=== PATIENT | female | born 1975 ===

== ENCOUNTER 2017-02-02 07:30 | Inpatient (IN) | payer OTHER ==
[~2017-02-02 07:30] MED LIST: Lactated Ringers 1,000 ML IV SCH; Lidocaine 1%/Sod Bicarbonate in NS 8.4% 1 ML Syringe PRN; Sodium Chloride 0.9% 10 ML Syringe FLUSH PRN
[2017-02-02] MEDS ORDERED: ceFAZolin 1 GM Vial ONE (08:27)
[2017-02-02] MEDS ORDERED: Morphine PF 1 MG/ML Amp ONE (08:32)
[2017-02-02] MEDS ORDERED: Midazolam 1 MG/ML 2 ML SDV ONE (09:00)
[2017-02-02] MEDS ORDERED: fentaNYL 100 MCG/2 ML SDV ONE (09:00)
[2017-02-02] MEDS ORDERED: Propofol 200 MG/20 ML SDV ONE ×2 (09:00→11:32)
--- NOTE | 2017-02-02 09:08 | PCM.PREANE ---
Preanesthetic Assessment - Procedure Proposed Procedure: R) THR - Anesthesia/Transfusion/Family Hx Anesthesia History: Prior Anesthesia Without Reaction Transfusion History: No Prior Transfusion(s) - Review of Systems General: No Symptoms Pulmonary: No Symptoms Cardiovascular: No Symptoms Gastrointestinal: No Symptoms Neurological: No Symptoms Other: Reports: None - Physical Assessment NPO Status Date: 02/01/17 NPO Status Time: 19:30 Pulse: 76 O2 Sat by Pulse Oximetry: 97 Respiratory Rate: 16 Blood Pressure: 116/81 Temperature: 36.8 C Height: 1.7 m Weight: 84 kg ASA Class: 2 Mental Status: Alert & Oriented x3 Airway Class: Mallampati = 1 Dentition: Reports: Normal Dentition (3) Thyro-Mental Finger Breadths: 3 Mouth Opening Finger Breadths: 3 ROM/Head Extension: Full Lungs: Clear to Auscultation, Normal Respiratory Effort Cardiovascular: Regular Rate, Regular Rhythm - Lab Values: Laboratory Last Values MRSA (PCR) Negative 01/23/17 12:24 - Allergies Allergies/Adverse Reactions: Allergies Allergy/AdvReac Type Severity Reaction Status Date / Time No Known Allergies Allergy Verified 02/02/17 08:49 - Blood Blood Available: No Product(s) Available: None - Anesthesia Plan Pre-Op Medication Ordered: None - Acknowledgements Anesthesia Type Planned: Spinal Pt an Appropriate Candidate for the Planned Anesthesia: Yes Alternatives and Risks of Anesthesia Discussed w Pt/Guardian: Yes Pt/Guardian Understands and Agrees with Anesthesia Plan: Yes PreAnesthesia Questionnaire Other OB/BYN History: ovarian cysts, Musculoskeletal History: Reports: Osteoarthritis Other Musculoskeletal History: right hip osteoarthritis, trochanteric bursitis - Past Surgical History Other Musculoskeletal Surgeries/Procedures:: left thumb reconstruction - SUBSTANCE USE Smoking Status *Q: Never Smoker Tobacco Use Within Last Twelve Months: No Recreational Drug Use History: No - HOME MEDS Home Medications: Home Meds Ibuprofen 200 mg PO Q6HR PRN 01/30/17 [History] Norethindrone [Ortho Micronor] 0.35 mg PO DAILY 01/30/17 [History] Vit A/C/E AC/Znox/Cupric Oxide [Eye Vitamin-Minerals Tablet] 1 tab PO DAILY [History] - CURRENT (IN HOUSE) MEDS Current Meds: Current Medications Aspirin (Ecotrin) 325 mg PO BID [facility] Bisacodyl (Dulcolax) 5 mg PO DAILY PRN PRN Reason: Constipation Morphine Sulfate 8 mg/Epinephrine HCl 0.3 mg/Cefuroxime Sodium 750 mg/Ketorolac Tromethamine 30 mg/Sodium Chloride 27.9 ml 0 mg .XX ONETIME ONE Stop: 02/02/17 10:01 Cyclobenzaprine HCl (Flexeril) 10 mg PO TID PRN PRN Reason: Spasms Diphenhydramine HCl (Benadryl) 25 mg IVPUSH Q4H PRN PRN Reason: Nausea Docusate Sodium (Colace) 100 mg PO BID [facility] Famotidine (Pepcid) 20 mg PO BID [facility] Lactated Ringer's (Ringers, Lactated) 1,000 mls @ 125 mls/hr IV ASDIRECTED [facility] Stop: 02/02/17 23:00 Cefazolin Sodium/Dextrose 2 gm (/ Premix) 50 mls @ 100 mls/hr IV Q8H [facility] Stop: 02/02/17 23:14 Ketorolac Tromethamine (Toradol) 15 mg IVPUSH Q6H PRN PRN Reason: Pain Lidocaine/Sodium Bicarbonate (Buffered Lidocaine 1% In Ns 8.4%) 0.25 ml .XX ONETIME PRN PRN Reason: Prior to IV Start Stop: 02/02/17 13:00 Magnesium Hydroxide (Milk Of Magnesia) 30 ml PO BID PRN PRN Reason: Constipation Morphine Sulfate (Morphine) 2 mg IVPUSH Q2H PRN PRN Reason: Breakthrough Pain Naloxone HCl (Narcan) 0.1 mg IVPUSH Q5M PRN PRN Reason: Oversedation Ondansetron HCl (Zofran) 4 mg IVPUSH Q6H PRN PRN Reason: Nausea/Vomiting Oxycodone/Acetaminophen (Percocet 325-5 Mg) 1 - 2 tab PO Q4H PRN PRN Reason: Pain Senna (Senna) 8.6 mg PO BID PRN PRN Reason: Constipation Sodium Chloride (Saline Flush) 10 ml FLUSH ASDIRECTED PRN PRN Reason: Keep Vein Open Stop: 02/02/17 13:00 Discontinued Medications Bupivacaine HCl (Marcaine 0.25%) Confirm Administered Dose 30 ml .ROUTE .STK- MED ONE Stop: 02/02/17 08:28 Cefazolin Sodium (Ancef) Confirm Administered Dose 2 gm .ROUTE .STK-MED ONE Stop: 02/02/17 08:28 Cefazolin Sodium (Ancef) Confirm Administered Dose 2 gm .ROUTE .STK-MED ONE Stop: 02/02/17 09:03 Fentanyl (Sublimaze) Confirm Administered Dose 100 mcg .ROUTE .STK-MED ONE Stop: 02/02/17 09:01 Iodine (Iodine 2% Mild Tincture) Confirm Administered Dose 30 ml .ROUTE .STK- MED ONE Stop: 02/02/17 08:28 Midazolam HCl (Versed 1 Mg/Ml) Confirm Administered Dose 2 mg .ROUTE .STK-MED ONE Stop: 02/02/17 09:01 Morphine Sulfate (Duramorph Pf) Confirm Administered Dose 1 mg .ROUTE .STK-MED ONE Stop: 02/02/17 08:33 Propofol (Diprivan 20 Ml) Confirm Administered Dose 600 mg .ROUTE .STK-MED ONE Stop: 02/02/17 09:01 Tranexamic Acid (Cyklokapron) Confirm Administered Dose 1,000 mg .ROUTE .STK- MED ONE Stop: 02/02/17 08:28 Vancomycin HCl (Vancomycin) Confirm Administered Dose 1 gm .ROUTE .STK-MED ONE Stop: 02/02/17 08:28
[2017-02-02] MEDS ORDERED: FLU Vacc QS 2017-18 (6mos UP)/PF 60 MCG/0.5 ML Syringe IM ONE (09:30)
[2017-02-02] MEDS ORDERED: Lidocaine 1% 4 ML ONE (10:22)
[2017-02-02] MEDS: Bupivacaine 0.25% 30 ML SDV ONE ×2 (10:44→11:21)
[2017-02-02] MEDS: ceFAZolin 1 GM Vial ONE ×2 (10:44→11:18)
[2017-02-02] MEDS: Iodine/Sodium Iodide 2% Tincture 30 ML Bottle ONE ×2 (10:45→11:15)
[2017-02-02] MEDS: Vancomycin 1 GM SDV ONE ×2 (10:46→11:22)
[2017-02-02] MEDS: Morphine 8 MG, EPINEPHrine 0.3 MG, Cefuroxime 750 MG, Ketorolac 30 MG, Sodium Chloride ... ONE ×15 (10:46→17:33)
[2017-02-02] MEDS ORDERED: diphenhydrAMINE 50 MG/ML SDV IVPUSH PRN ×2 (11:07→12:00)
[2017-02-02] MEDS ORDERED: fentaNYL 100 MCG/2 ML SDV IVPUSH PRN (11:07)
[2017-02-02] MEDS ORDERED: Ondansetron 4 MG/2 ML SDV IVPUSH PRN ×2 (11:07→12:00)
[2017-02-02] MEDS ORDERED: Meperidine PF 50 MG/ML Syringe IVPUSH PRN (11:07)
[2017-02-02] MEDS ORDERED: ePHEDrine/Normal Saline 25 MG/5 ML Syringe ONE (11:08)
[2017-02-02] MEDS ORDERED: Lactated Ringers 1,000 ML ONE ×2 (11:14)
--- NOTE | 2017-02-02 11:57 | PCM.POSTAN ---
POST ANESTHESIA ASSESSMENT - MENTAL STATUS Mental Status: Alert, Oriented - VITAL SIGNS Pulse Rate: 61 SaO2: 100 Resp Rate: 18 Blood Pressure: 89/55 Temperature: 36.5 C - RESPIRATORY Respiratory Status: Respiratory Rate WNL, Airway Patent, O2 Saturation Stable, Supplemental Oxygen - CARDIOVASCULAR CV Status: Pulse Rate WNL, Blood Pressure Stable - GASTROINTESTINAL GI Status: No Symptoms - PAIN Pain Score: 0 - POST OP HYDRATION Hydration Status: Adequate & Stable
[2017-02-02] MEDS ORDERED: Morphine 4 MG/ML Syringe IVPUSH PRN (12:00)
[2017-02-02] MEDS ORDERED: Magnesium Hydroxide 400 MG/5 ML Susp 30 ML Cup PO PRN (12:00)
[2017-02-02] MEDS ORDERED: Ketorolac 15 MG/ML SDV IVPUSH PRN (12:00)
[2017-02-02] MEDS ORDERED: Bisacodyl 5 MG Tab PO PRN (12:00)
[2017-02-02] MEDS ORDERED: Naloxone 0.4 MG/ML SDV IVPUSH PRN (12:00)
[2017-02-02] MEDS ORDERED: Sennosides 8.6 MG Tab PO PRN (12:00)
--- NOTE | 2017-02-02 13:32 | CR ---
Pelvis and right hip: AP view of the pelvis was obtained as well as lateral view of the right hip. Comparison: No previous pelvis or hip exam. Right hip prosthesis is seen. Components are aligned. Underlying bony structures are within normal limits. Joint space within the left hip is preserved. Impression: 1. Satisfactory appearance of recently placed right hip prosthesis. Diagnostic code #2
--- NOTE | 2017-02-02 14:29 | PCM.CONSN ---
- General Info Date of Service: 02/02/17 Admission Dx/Problem (Free Text): Nena is a 41yo female S/P Rt DENAE with Dr. Campoverde this morning. 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 She had nausea and dizziness earlier this evening, scopolamine patch was ordered and nausea has subsided. She ate supper without problems. Pain is minimal to none currently. She was standing at bedside earlier with PT but got dizzy and nasuseous so has not ambulated yet. Otherwise she is doing well, no c/ o or concerns. She is off of O2 with other VSS. Hospitalist service is consulted for postoperative medical management. PMH: OA as noted above. Meds: OCP, motrin and vitamin daily Patient is Full Code status. PCP is Dr. Sanchez with [facility] in [place] Functional Status: Reports: Pain Controlled, Tolerating Diet, Ambulating, Urinating (ward cath in place), Incentive Spirometry - Review of Systems General: Reports: No Symptoms HEENT: Reports: No Symptoms Pulmonary: Reports: No Symptoms Cardiovascular: Reports: No Symptoms Gastrointestinal: Reports: No Symptoms Genitourinary: Reports: No Symptoms Musculoskeletal: Reports: Leg Pain (minimal leg/hip pain at present) Skin: Reports: No Symptoms Neurological: Reports: No Symptoms Psychiatric: Reports: No Symptoms - Patient Data Vitals - Most Recent: Last Vital Signs Temp 98.1 F 02/02/17 12:40 Pulse 61 02/02/17 11:57 Resp 14 02/02/17 12:40 BP 105/65 02/02/17 12:40 Pulse Ox 99 02/02/17 12:40 Weight - Most Recent: 185 lb 1.6 oz I&O - Last 24 Hours: Intake & Output 02/01/17 02/02/17 02/02/17 22:59 06:59 14:59 Intake Total 250 Output Total 700 Balance -450 Lab Results Last 24 Hours: Laboratory Results - last 24 hr 02/02/17 02/02/17 Range/Units 08:34 08:55 Urine HCG, Qual Negative (NEGATIVE) Blood Type B POSITIVE Gel Antibody Screen Negative Med Orders - Current: Current Medications Aspirin (Ecotrin) 325 mg PO BID [facility] Bisacodyl (Dulcolax) 5 mg PO DAILY PRN PRN Reason: Constipation Cyclobenzaprine HCl (Flexeril) 10 mg PO TID PRN PRN Reason: Spasms Diphenhydramine HCl (Benadryl) 25 mg IVPUSH Q6H PRN PRN Reason: Pruritis Stop: 02/02/17 23:00 Docusate Sodium (Colace) 100 mg PO BID [facility] Famotidine (Pepcid) 20 mg PO BID [facility] Lactated Ringer's (Ringers, Lactated) 1,000 mls @ 125 mls/hr IV ASDIRECTED [facility] Stop: 02/02/17 23:00 Last Admin: 02/02/17 08:55 Dose: 125 mls/hr Cefazolin Sodium/Dextrose 2 gm (/ Premix) 50 mls @ 100 mls/hr IV Q8H [facility] Stop: 02/03/17 09:29 Ketorolac Tromethamine (Toradol) 15 mg IVPUSH Q6H PRN PRN Reason: Pain Magnesium Hydroxide (Milk Of Magnesia) 30 ml PO BID PRN PRN Reason: Constipation Morphine Sulfate (Morphine) 2 mg IVPUSH Q2H PRN PRN Reason: Breakthrough Pain Naloxone HCl (Narcan) 0.1 mg IVPUSH Q5M PRN PRN Reason: Oversedation Ondansetron HCl (Zofran) 4 mg IVPUSH Q6H PRN PRN Reason: Nausea/Vomiting Oxycodone/Acetaminophen (Percocet 325-5 Mg) 1 - 2 tab PO Q4H PRN PRN Reason: Pain Norethindrone [Ortho (Micronor] 0.35 Mg) 0 each PO DAILY [facility] Senna (Senna) 8.6 mg PO BID PRN PRN Reason: Constipation Discontinued Medications Bupivacaine HCl (Marcaine 0.25%) Confirm Administered Dose 30 ml .ROUTE .STK- MED ONE Stop: 02/02/17 08:28 Last Admin: 02/02/17 11:21 Dose: 30 ml Cefazolin Sodium (Ancef) Confirm Administered Dose 2 gm .ROUTE .STK-MED ONE Stop: 02/02/17 08:28 Cefazolin Sodium (Ancef) Confirm Administered Dose 2 gm .ROUTE .STK-MED ONE Stop: 02/02/17 09:03 Last Admin: 02/02/17 11:18 Dose: 2 gm Morphine Sulfate 8 mg/Epinephrine HCl 0.3 mg/Cefuroxime Sodium 750 mg/Ketorolac Tromethamine 30 mg/Sodium Chloride 27.9 ml 0 mg .XX ONETIME ONE Stop: 02/02/17 10:01 Last Admin: 02/02/17 11:20 Dose: 788.3 mg Diphenhydramine HCl (Benadryl) 25 mg IVPUSH Q4H PRN PRN Reason: Nausea Ephedrine Sulfate (Ephedrine In Ns) Confirm Administered Dose 25 mg .ROUTE .STK- MED ONE Stop: 02/02/17 11:09 Fentanyl (Sublimaze) Confirm Administered Dose 100 mcg .ROUTE .STK-MED ONE Stop: 02/02/17 09:01 Fentanyl (Sublimaze) 50 mcg IVPUSH Q5M PRN PRN Reason: Pain Stop: 02/02/17 11:08 Glycopyrrolate () Confirm Administered Dose 1 mg .ROUTE .STK-MED ONE Stop: 02/02/17 10:58 Lidocaine HCl (Xylocaine-Mpf 1%) Confirm Administered Dose 4 mls @ as directed .ROUTE .STK-MED ONE Stop: 02/02/17 10:23 Lactated Ringer's (Ringers, Lactated) Confirm Administered Dose 1,000 mls @ as directed .ROUTE .STK-MED ONE Stop: 02/02/17 11:15 Lactated Ringer's (Ringers, Lactated) Confirm Administered Dose 1,000 mls @ as directed .ROUTE .STK-MED ONE Stop: 02/02/17 11:15 Influenza Virus Vaccine (Flulaval Quad [id number]) 60 mcg IM .ONCE ONE Stop: 02/02/17 09:31 Iodine (Iodine 2% Mild Tincture) Confirm Administered Dose 30 ml .ROUTE .STK- MED ONE Stop: 02/02/17 08:28 Last Admin: 02/02/17 11:15 Dose: 18 ml Lidocaine/Sodium Bicarbonate (Buffered Lidocaine 1% In Ns 8.4%) 0.25 ml .XX ONETIME PRN PRN Reason: Prior to IV Start Stop: 02/02/17 13:00 Last Admin: 02/02/17 08:55 Dose: 0.25 ml Meperidine HCl (Demerol) 12.5 mg IVPUSH ONETIME PRN PRN Reason: Shivering Stop: 02/02/17 16:00 Midazolam HCl (Versed 1 Mg/Ml) Confirm Administered Dose 2 mg .ROUTE .STK-MED ONE Stop: 02/02/17 09:01 Morphine Sulfate (Duramorph Pf) Confirm Administered Dose 1 mg .ROUTE .STK-MED ONE Stop: 02/02/17 08:33 Ondansetron HCl (Zofran) 4 mg IVPUSH ONETIME PRN PRN Reason: Nausea/Vomiting Stop: 02/02/17 23:00 Propofol (Diprivan 20 Ml) Confirm Administered Dose 600 mg .ROUTE .STK-MED ONE Stop: 02/02/17 09:01 Propofol (Diprivan 20 Ml) Confirm Administered Dose 200 mg .ROUTE .STK-MED ONE Stop: 02/02/17 11:33 Sodium Chloride (Saline Flush) 10 ml FLUSH ASDIRECTED PRN PRN Reason: Keep Vein Open Stop: 02/02/17 13:00 Tranexamic Acid (Cyklokapron) Confirm Administered Dose 1,000 mg .ROUTE .STK- MED ONE Stop: 02/02/17 08:28 Last Admin: 02/02/17 11:22 Dose: 1,000 mg Vancomycin HCl (Vancomycin) Confirm Administered Dose 1 gm .ROUTE .STK-MED ONE Stop: 02/02/17 08:28 Last Admin: 02/02/17 11:22 Dose: 1 gm - Exam Quality Assessment: DVT Prophylaxis General: Alert, Oriented, Cooperative, No Acute Distress HEENT: Pupils Equal, EOMI, Mucous Membr. Moist/[place] Neck: Supple Lungs: Clear to Auscultation, Normal Respiratory Effort Cardiovascular: Regular Rate, Regular Rhythm GI/Abdominal Exam: Normal Bowel Sounds, Soft, Non-Tender (Female) Exam: Deferred Extremities: Other (dressing to rt hip, ice present) Peripheral Pulses: 2+: Dorsalis Pedis (L), Dorsalis Pedis (R) Wound/Incisions: Dressing Dry and Intact Neurological: No New Focal Deficit Psy/Mental Status: Alert, Normal Affect, Normal Mood Consult PN Assessment/Plan POD#: 0 Procedures: Procedures TRANSVAGINAL US NON-OB (05/28/16) (1) S/P total hip arthroplasty SNOMED Code(s): 336028924766 Code(s): Z96.649 - PRESENCE OF UNSPECIFIED ARTIFICIAL HIP JOINT Priority: High Current Visit: Yes Qualifiers: Laterality: right Qualified Code(s): Z96.641 - Presence of right artificial hip joint (2) Osteoarthritis SNOMED Code(s): 724423293 Code(s): M19.90 - UNSPECIFIED OSTEOARTHRITIS, UNSPECIFIED SITE Priority: High Current Visit: Yes Qualifiers: Osteoarthritis location: hip Osteoarthritis type: resulting from hip dysplasia Laterality: right Qualified Code(s): M16.31 - Unilateral osteoarthritis resulting from hip dysplasia, right hip (3) Congenital hip dysplasia SNOMED Code(s): 89537218 Code(s): Q65.89 - OTHER SPECIFIED CONGENITAL DEFORMITIES OF HIP Priority: Medium Current Visit: No Problem List Initiated/Reviewed/Updated: Yes Plan: I/P: S/P Rt DENAE with Dr. Campoverde, POD #0 -Pain management and DVT prophylax per Ortho--xarelto per Ortho as she is on OCP's. -PT/OT -RT/IS -Preop hgb 12.9, follow am labs -She is very motivated and wants to ambulate this evening with nursing. Suspect she will do well and be discharged home tomorrow. OA due to hx of congenital hip dysplasia Other: Cont home meds, OCP daily Am labs GI prophylax CM/SW for assist with DC planning Patient is full code status PCP is Dr. Sanchez.
[2017-02-02] MEDS: ceFAZolin 2 GM in Premix Bag 1 BAG IV SCH (17:26)
[2017-02-02] MEDS ORDERED: Scopolamine 1.5 MG Transdermal Patch TRDERM PRN (18:17)
[2017-02-02] MEDS: Docusate Sodium 100 MG Cap PO SCH (20:42)
[2017-02-02] MEDS: Cyclobenzaprine 10 MG Tab PO PRN (20:42)
[2017-02-02] MEDS: Famotidine 20 MG Tab PO SCH (20:42)
[2017-02-02] MEDS: Acetaminophen/oxyCODONE 325-5 MG Tab PO PRN (20:42)
[2017-02-03] MEDS: ceFAZolin 2 GM in Premix Bag 1 BAG IV SCH ×2 (02:09→14:21)
--- NOTE | 2017-02-03 08:32 | PN ---
DATE OF SERVICE: 02/03/2017 CHIEF COMPLAINT: Status post right total hip arthroplasty. SUBJECTIVE: Nena is a pleasant 41-year-old female, sitting upright, comfortable, without complaints this morning. She slept well. Pain is under great control with pain medication and muscle relaxant. She was up and ambulatory 3 times in the night. She has not voided since Stout catheter has been removed. She is hopeful for discharge home today. OBJECTIVE: VITAL SIGNS: Stable. HEENT: Unremarkable. HEART: Regular rate and rhythm. No murmur, rub, or gallop. LUNGS: Clear to auscultation. ABDOMEN: Soft and nontender. Bowel sounds present. MUSCULOSKELETAL: Left leg and thigh are soft. Dressings clean, dry, and intact. Distally, CMS is intact. NEURO: Alert and oriented x3. IMPRESSION: 1. Status post right total hip arthroplasty with Dr. Campoverde, postop day #1. 2. Congenital hip dysplasia with subsequent osteoarthritis. 3. Oral contraceptive use for control. PLAN: Awaiting labs for the morning, computer system is currently down. The patient is doing very well. She is ambulatory. Vital signs are stable. We will review lab work and, if within normal limits, the patient will be okay for discharge home from a hospitalist standpoint. I do not suspect any laboratory abnormalities as the patient is doing very well. Continue physical therapy and continue incentive spirometry. MMDELIA /[id number]
[2017-02-03] MEDS ORDERED: Aspirin 325 MG Tab.EC PO SCH (09:00)
[2017-02-03] MEDS ORDERED: Rivaroxaban 10 MG Tab PO SCH (09:00)
[2017-02-03] MEDS ORDERED: NORETHINDRONE 0.35 MG PO SCH (09:00)
[2017-02-03] MEDS: Famotidine 20 MG Tab PO SCH (14:22)
[2017-02-03] MEDS: Docusate Sodium 100 MG Cap PO SCH (14:22)
[2017-02-03] MEDS: Acetaminophen/oxyCODONE 325-5 MG Tab PO PRN (15:08)
[2017-02-03] MEDS: Cyclobenzaprine 10 MG Tab PO PRN (16:02)
--- NOTE | 2017-02-03 16:38 | PCM48HPAN ---
Post Anesthesia Note - EVALUATION WITHIN 48HRS OF ANESTHETIC Vital Signs in Normal Range: Yes Patient Participated in Evaluation: Yes Respiratory Function Stable: Yes Airway Patent: Yes Cardiovascular Function Stable: Yes Hydration Status Stable: Yes Pain Control Satisfactory: Yes Nausea and Vomiting Control Satisfactory: Yes Mental Status Recovered: Yes
--- NOTE | 2017-02-03 16:38 | PCM.SURGPN ---
- General Info Date of Service: 02/03/17 POD#: 1 Functional Status: Reports: Pain Controlled, Tolerating Diet, Ambulating, Urinating, Incentive Spirometry - Review of Systems Musculoskeletal: Reports: Other (The pt met inpatient therapy goals.) - Patient Data Vitals - Most Recent: Last Vital Signs Temp 97.9 F 02/03/17 00:08 Pulse 52 L 02/03/17 00:08 Resp 16 02/03/17 03:00 BP 91/51 L 02/03/17 00:08 Pulse Ox 99 02/03/17 00:08 Weight - Most Recent: 185 lb 1.6 oz I&O - Last 24 Hours: Intake & Output 02/02/17 02/03/17 02/03/17 22:59 06:59 14:59 Intake Total 810 0 Output Total 500 Balance 310 0 Med Orders - Current: Current Medications Bisacodyl (Dulcolax) 5 mg PO DAILY PRN PRN Reason: Constipation Cyclobenzaprine HCl (Flexeril) 10 mg PO TID PRN PRN Reason: Spasms Last Admin: 02/02/17 20:42 Dose: 10 mg Docusate Sodium (Colace) 100 mg PO BID [facility] Last Admin: 02/02/17 20:42 Dose: 100 mg Famotidine (Pepcid) 20 mg PO BID [facility] Last Admin: 02/02/17 20:42 Dose: 20 mg Cefazolin Sodium/Dextrose 2 gm (/ Premix) 50 mls @ 100 mls/hr IV Q8H [facility] Stop: 02/03/17 09:29 Last Admin: 02/03/17 02:09 Dose: 100 mls/hr Ketorolac Tromethamine (Toradol) 15 mg IVPUSH Q6H PRN PRN Reason: Pain Last Admin: 02/03/17 02:09 Dose: 15 mg Magnesium Hydroxide (Milk Of Magnesia) 30 ml PO BID PRN PRN Reason: Constipation Miscellaneous Information (Remove Patch) 0 ea TRDERM Q72H [facility] Morphine Sulfate (Morphine) 2 mg IVPUSH Q2H PRN PRN Reason: Breakthrough Pain Naloxone HCl (Narcan) 0.1 mg IVPUSH Q5M PRN PRN Reason: Oversedation Ondansetron HCl (Zofran) 4 mg IVPUSH Q6H PRN PRN Reason: Nausea/Vomiting Last Admin: 02/02/17 14:41 Dose: 4 mg Oxycodone/Acetaminophen (Percocet 325-5 Mg) 1 - 2 tab PO Q4H PRN PRN Reason: Pain Last Admin: 02/02/17 20:42 Dose: 2 tab Norethindrone [Ortho (Micronor] 0.35 Mg) 0 each PO DAILY [facility] Rivaroxaban (Xarelto) 10 mg PO DAILY [facility] Scopolamine (Transderm-Scop) 1.5 mg TRDERM Q72H PRN PRN Reason: Nausea/Vomiting Last Admin: 02/02/17 18:39 Dose: 1.5 mg Senna (Senna) 8.6 mg PO BID PRN PRN Reason: Constipation Discontinued Medications Aspirin (Ecotrin) 325 mg PO BID [facility] Bupivacaine HCl (Marcaine 0.25%) Confirm Administered Dose 30 ml .ROUTE .STK- MED ONE Stop: 02/02/17 08:28 Last Admin: 02/02/17 11:21 Dose: 30 ml Cefazolin Sodium (Ancef) Confirm Administered Dose 2 gm .ROUTE .STK-MED ONE Stop: 02/02/17 08:28 Cefazolin Sodium (Ancef) Confirm Administered Dose 2 gm .ROUTE .STK-MED ONE Stop: 02/02/17 09:03 Last Admin: 02/02/17 11:18 Dose: 2 gm Morphine Sulfate 8 mg/Epinephrine HCl 0.3 mg/Cefuroxime Sodium 750 mg/Ketorolac Tromethamine 30 mg/Sodium Chloride 27.9 ml 0 mg .XX ONETIME ONE Stop: 02/02/17 10:01 Last Admin: 02/02/17 17:33 Dose: Not Given Diphenhydramine HCl (Benadryl) 25 mg IVPUSH Q4H PRN PRN Reason: Nausea Diphenhydramine HCl (Benadryl) 25 mg IVPUSH Q6H PRN PRN Reason: Pruritis Stop: 02/02/17 23:00 Last Admin: 02/02/17 15:28 Dose: 25 mg Ephedrine Sulfate (Ephedrine In Ns) Confirm Administered Dose 25 mg .ROUTE .STK- MED ONE Stop: 02/02/17 11:09 Fentanyl (Sublimaze) Confirm Administered Dose 100 mcg .ROUTE .STK-MED ONE Stop: 02/02/17 09:01 Fentanyl (Sublimaze) 50 mcg IVPUSH Q5M PRN PRN Reason: Pain Stop: 02/02/17 11:08 Glycopyrrolate () Confirm Administered Dose 1 mg .ROUTE .STK-MED ONE Stop: 02/02/17 10:58 Lactated Ringer's (Ringers, Lactated) 1,000 mls @ 125 mls/hr IV ASDIRECTED [facility] Stop: 02/02/17 23:00 Last Admin: 02/02/17 08:55 Dose: 125 mls/hr Lidocaine HCl (Xylocaine-Mpf 1%) Confirm Administered Dose 4 mls @ as directed .ROUTE .STK-MED ONE Stop: 02/02/17 10:23 Lactated Ringer's (Ringers, Lactated) Confirm Administered Dose 1,000 mls @ as directed .ROUTE .STK-MED ONE Stop: 02/02/17 11:15 Lactated Ringer's (Ringers, Lactated) Confirm Administered Dose 1,000 mls @ as directed .ROUTE .STK-MED ONE Stop: 02/02/17 11:15 Influenza Virus Vaccine (Flulaval Quad [id number]) 60 mcg IM .ONCE ONE Stop: 02/02/17 09:31 Last Admin: 02/02/17 17:33 Dose: Not Given Iodine (Iodine 2% Mild Tincture) Confirm Administered Dose 30 ml .ROUTE .STK- MED ONE Stop: 02/02/17 08:28 Last Admin: 02/02/17 11:15 Dose: 18 ml Lidocaine/Sodium Bicarbonate (Buffered Lidocaine 1% In Ns 8.4%) 0.25 ml .XX ONETIME PRN PRN Reason: Prior to IV Start Stop: 02/02/17 13:00 Last Admin: 02/02/17 08:55 Dose: 0.25 ml Meperidine HCl (Demerol) 12.5 mg IVPUSH ONETIME PRN PRN Reason: Shivering Stop: 02/02/17 16:00 Midazolam HCl (Versed 1 Mg/Ml) Confirm Administered Dose 2 mg .ROUTE .STK-MED ONE Stop: 02/02/17 09:01 Morphine Sulfate (Duramorph Pf) Confirm Administered Dose 1 mg .ROUTE .STK-MED ONE Stop: 02/02/17 08:33 Ondansetron HCl (Zofran) 4 mg IVPUSH ONETIME PRN PRN Reason: Nausea/Vomiting Stop: 02/02/17 23:00 Propofol (Diprivan 20 Ml) Confirm Administered Dose 600 mg .ROUTE .STK-MED ONE Stop: 02/02/17 09:01 Propofol (Diprivan 20 Ml) Confirm Administered Dose 200 mg .ROUTE .STK-MED ONE Stop: 02/02/17 11:33 Sodium Chloride (Saline Flush) 10 ml FLUSH ASDIRECTED PRN PRN Reason: Keep Vein Open Stop: 02/02/17 13:00 Tranexamic Acid (Cyklokapron) Confirm Administered Dose 1,000 mg .ROUTE .STK- MED ONE Stop: 02/02/17 08:28 Last Admin: 02/02/17 11:22 Dose: 1,000 mg Vancomycin HCl (Vancomycin) Confirm Administered Dose 1 gm .ROUTE .STK-MED ONE Stop: 02/02/17 08:28 Last Admin: 02/02/17 11:22 Dose: 1 gm - Exam Wound/Incisions: Dressing Dry and Intact General: Alert, Cooperative, No Acute Distress Lungs: Normal Respiratory Effort Extremities: Other (NVS intact for RLE. Gregorio's negative. Right thigh soft.) - Problem List Review Problem List Initiated/Reviewed/Updated: Yes - My Orders Last 24 Hours: Active Orders 24 hr Category Date Time Status CBC WITH AUTO DIFF [HEME] AM Lab 02/03/17 05:11 Ordered COMPREHENSIVE METABOLIC PN,CMP [CHEM] AM Lab 02/03/17 06:45 Ordered Acetaminophen/oxyCODONE [Percocet 325-5 MG] Med 02/02/17 12:00 Active 1 - 2 tab PO Q4H PRN Bisacodyl [Dulcolax] Med 02/02/17 12:00 Active 5 mg PO DAILY PRN Cyclobenzaprine [Flexeril] Med 02/02/17 12:00 Active 10 mg PO TID PRN Docusate Sodium [Colace] Med 02/02/17 21:00 Active 100 mg PO BID Famotidine [Pepcid] Med 02/02/17 21:00 Active 20 mg PO BID Ketorolac [Toradol] Med 02/02/17 12:00 Active 15 mg IVPUSH Q6H PRN Magnesium Hydroxide [Milk of Magnesia] Med 02/02/17 12:00 Active 30 ml PO BID PRN Morphine Med 02/02/17 12:00 Active 2 mg IVPUSH Q2H PRN Naloxone [Narcan] Med 02/02/17 12:00 Active 0.1 mg IVPUSH Q5M PRN Ondansetron [Zofran] Med 02/02/17 12:00 Active 4 mg IVPUSH Q6H PRN Patient's Own Medication [Ptom] Med 02/03/17 09:00 Active 0 each PO DAILY Remove Patch Med 02/05/17 18:30 Active 0 ea TRDERM Q72H Rivaroxaban [Xarelto] Med 02/03/17 09:00 Pending 10 mg PO DAILY Scopolamine [Transderm-Scop] Med 02/02/17 18:17 Active 1.5 mg TRDERM Q72H PRN Sennosides [Senna] Med 02/02/17 12:00 Active 8.6 mg PO BID PRN ceFAZolin [Ancef] 2 gm Med 02/02/17 17:00 Active Premix Bag 1 bag IV Q8H Medication Orders Bisacodyl (Dulcolax) 5 mg PO DAILY PRN PRN Reason: Constipation Cyclobenzaprine HCl (Flexeril) 10 mg PO TID PRN PRN Reason: Spasms Last Admin: 02/02/17 20:42 Dose: 10 mg Docusate Sodium (Colace) 100 mg PO BID [facility] Last Admin: 02/02/17 20:42 Dose: 100 mg Famotidine (Pepcid) 20 mg PO BID [facility] Last Admin: 02/02/17 20:42 Dose: 20 mg Cefazolin Sodium/Dextrose 2 gm (/ Premix) 50 mls @ 100 mls/hr IV Q8H [facility] Stop: 02/03/17 09:29 Last Admin: 02/03/17 02:09 Dose: 100 mls/hr Infusion: 02/02/17 17:56 Dose: 100 mls/hr Admin: 02/02/17 17:26 Dose: 100 mls/hr Ketorolac Tromethamine (Toradol) 15 mg IVPUSH Q6H PRN PRN Reason: Pain Last Admin: 02/03/17 02:09 Dose: 15 mg Magnesium Hydroxide (Milk Of Magnesia) 30 ml PO BID PRN PRN Reason: Constipation Miscellaneous Information (Remove Patch) 0 ea TRDERM Q72H [facility] Morphine Sulfate (Morphine) 2 mg IVPUSH Q2H PRN PRN Reason: Breakthrough Pain Naloxone HCl (Narcan) 0.1 mg IVPUSH Q5M PRN PRN Reason: Oversedation Ondansetron HCl (Zofran) 4 mg IVPUSH Q6H PRN PRN Reason: Nausea/Vomiting Last Admin: 02/02/17 14:41 Dose: 4 mg Oxycodone/Acetaminophen (Percocet 325-5 Mg) 1 - 2 tab PO Q4H PRN PRN Reason: Pain Last Admin: 02/02/17 20:42 Dose: 2 tab Norethindrone [Ortho (Micronor] 0.35 Mg) 0 each PO DAILY [facility] Rivaroxaban (Xarelto) 10 mg PO DAILY [facility] Scopolamine (Transderm-Scop) 1.5 mg TRDERM Q72H PRN PRN Reason: Nausea/Vomiting Last Admin: 02/02/17 18:39 Dose: 1.5 mg Senna (Senna) 8.6 mg PO BID PRN PRN Reason: Constipation - Assessment Assessment (Free Text/Narrative):: POD#1 - right DENAE - Plan Plan (Free Text/Narrative):: 1. Xarelto, frequent mobility, TEDs. 2. Discharge to home today. 3. Outpatient therapy. The pt's case was discussed with Dr. Campoverde.
--- NOTE | 2017-02-05 06:40 | PCM.DCSUM1 ---
Discharge Summary - Hospital Course Brief History: Nena is a 41 yo female who underwent right DENAE with Dr. Campoverde on 02-02-17. The procedure was completed under spinal anesthesia with MAC. The pt tolerated the procedure well and was admitted to the Medical-Surgical Unit. She participated in P.T. and O.T. and progressed well. DENAE precautions were followed. The pt was allowed to WBAT and used a FWW for mobility. The pt' s surgical wound was dressed with a Mepilex dressing and remained clean and dry. On POD#1, the pt was started on 325mg ASA BID for VTE prophylaxis. The pt used TEDs and SCDs also. On POD#1, the pt's hemoglobin was 10.8. Medial management was provided by the Hospitalist service and the pt's hospital course was uneventful. On POD#2, the pt was deemed appropriate for discharge to home with family. - Discharge Data Discharge Date: 02/03/17 Discharge Disposition: Home, Self-Care 01 Condition: Good - Patient Summary/Data Consults: Consultations 02/02/17 06:40 OT Evaluation and Treatment [CONS] Routine PT Evaluation and Treatment [CONS] Routine 02/02/17 06:41 Consult to Physician [CONS] Routine - Patient Instructions Diet: Usual Diet as Tolerated Activity: Apply Ice, As Tolerated, Elevate Extremity, Full Weight Bearing Activity, Other: Total hip precautions. Driving: Do Not Drive Showering/Bathing: May Shower Wound/Incision Care: Keep Operative Site/Wound Site Clean and Dry, Do NOT Change Dressing Notify Provider of: Fever, Increased Pain, Swelling and Redness, Drainage, Nausea and/or Vomiting Other/Special Instructions: Please get up and moving around every hour while awake. This helps to prevent blood clots. Please take the Xarelto blood thinner medication daily - this also helps to prevent blood clots. Please wear the DANUTA hose during the day and you may remove them at night. Please schedule for P.T. Complete the P.T. exercises and stretches that were instructed in the Hospital. Follow the total hip replacement precautions. Please use the pain medication and muscle relaxant as needed. The medication may cause drowsiness and/or constipation. You could use a stool softener like docusate sodium or Colace 100mg twice daily and/or a laxative like Miralax daily for constipation. Contact your primary care provider for further instructions if you are constipated. Please schedule an appointment with your primary care provider for 'routine post-op care'. Use the incentive spirometer often. Please place ice to the hip often. Please elevate the limb to decrease swelling. Keep the Mepilex dressing in place until follow-up. Please call [phone] with questions or concerns. - Discharge Plan Prescriptions/Med Rec: Acetaminophen/oxyCODONE [Percocet 325-5 MG] 1 - 2 tab PO Q4H PRN #60 tablet PRN Reason: Pain Cyclobenzaprine [Flexeril] 10 mg PO TID PRN #40 tablet PRN Reason: Spasms Rivaroxaban [Xarelto] 10 mg PO DAILY #40 tablet Home Medications: Home Meds Norethindrone [Ortho Micronor] 0.35 mg PO DAILY 01/30/17 [History] Vit A/C/E AC/Znox/Cupric Oxide [Eye Vitamin-Minerals Tablet] 1 tab PO DAILY [History] Acetaminophen/oxyCODONE [Percocet 325-5 MG] 1 - 2 tab PO Q4H PRN #60 tablet [Rx] Cyclobenzaprine [Flexeril] 10 mg PO TID PRN #40 tablet 02/03/17 [Rx] Docusate Sodium [Colace] 100 mg PO BID cap 02/03/17 [Rx] Famotidine [Pepcid] 20 mg PO BID tablet 02/03/17 [Rx] Rivaroxaban [Xarelto] 10 mg PO DAILY #40 tablet 02/03/17 [Rx] Patient Handouts: Total Hip Replacement, Care After, Total Hip Replacement Referrals: Batsheva Garsia PA-C [Physician Pressure Controller] - (1. Follow-up with Batsheva Garsia PA-C on February 11, 2017 at 9:30 am. 2. Follow-up with Batsheva Garsia PA-C on February 17, 2017 at 9:30 am.) Cassia Shah MD [Primary Care Provider] - 02/06/17 1:30 pm - Patient Data Vitals - Most Recent: Last Vital Signs Temp 97.9 F 02/03/17 12:00 Pulse 57 L 02/03/17 12:00 Resp 17 02/03/17 12:00 BP 100/61 02/03/17 12:00 Pulse Ox 100 02/03/17 12:00 Weight - Most Recent: 185 lb 1.6 oz Med Orders - Current: Current Medications Discontinued Medications Aspirin (Ecotrin) 325 mg PO BID [facility] Bisacodyl (Dulcolax) 5 mg PO DAILY PRN PRN Reason: Constipation Bupivacaine HCl (Marcaine 0.25%) Confirm Administered Dose 30 ml .ROUTE .STK- MED ONE Stop: 02/02/17 08:28 Last Admin: 02/02/17 11:21 Dose: 30 ml Cefazolin Sodium (Ancef) Confirm Administered Dose 2 gm .ROUTE .STK-MED ONE Stop: 02/02/17 08:28 Cefazolin Sodium (Ancef) Confirm Administered Dose 2 gm .ROUTE .STK-MED ONE Stop: 02/02/17 09:03 Last Admin: 02/02/17 11:18 Dose: 2 gm Morphine Sulfate 8 mg/Epinephrine HCl 0.3 mg/Cefuroxime Sodium 750 mg/Ketorolac Tromethamine 30 mg/Sodium Chloride 27.9 ml 0 mg .XX ONETIME ONE Stop: 02/02/17 10:01 Last Admin: 02/02/17 17:33 Dose: Not Given Cyclobenzaprine HCl (Flexeril) 10 mg PO TID PRN PRN Reason: Spasms Last Admin: 02/03/17 16:02 Dose: 10 mg Diphenhydramine HCl (Benadryl) 25 mg IVPUSH Q4H PRN PRN Reason: Nausea Diphenhydramine HCl (Benadryl) 25 mg IVPUSH Q6H PRN PRN Reason: Pruritis Stop: 02/02/17 23:00 Last Admin: 02/02/17 15:28 Dose: 25 mg Docusate Sodium (Colace) 100 mg PO BID [facility] Last Admin: 02/03/17 14:22 Dose: Not Given Ephedrine Sulfate (Ephedrine In Ns) Confirm Administered Dose 25 mg .ROUTE .STK- MED ONE Stop: 02/02/17 11:09 Famotidine (Pepcid) 20 mg PO BID [facility] Last Admin: 02/03/17 14:22 Dose: Not Given Fentanyl (Sublimaze) Confirm Administered Dose 100 mcg .ROUTE .STK-MED ONE Stop: 02/02/17 09:01 Fentanyl (Sublimaze) 50 mcg IVPUSH Q5M PRN PRN Reason: Pain Stop: 02/02/17 11:08 Glycopyrrolate () Confirm Administered Dose 1 mg .ROUTE .STK-MED ONE Stop: 02/02/17 10:58 Lactated Ringer's (Ringers, Lactated) 1,000 mls @ 125 mls/hr IV ASDIRECTED [facility] Stop: 02/02/17 23:00 Last Admin: 02/02/17 08:55 Dose: 125 mls/hr Cefazolin Sodium/Dextrose 2 gm (/ Premix) 50 mls @ 100 mls/hr IV Q8H [facility] Stop: 02/03/17 09:29 Last Admin: 02/03/17 14:21 Dose: Not Given Lidocaine HCl (Xylocaine-Mpf 1%) Confirm Administered Dose 4 mls @ as directed .ROUTE .STK-MED ONE Stop: 02/02/17 10:23 Lactated Ringer's (Ringers, Lactated) Confirm Administered Dose 1,000 mls @ as directed .ROUTE .STK-MED ONE Stop: 02/02/17 11:15 Lactated Ringer's (Ringers, Lactated) Confirm Administered Dose 1,000 mls @ as directed .ROUTE .STK-MED ONE Stop: 02/02/17 11:15 Influenza Virus Vaccine (Flulaval Quad [id number]) 60 mcg IM .ONCE ONE Stop: 02/02/17 09:31 Last Admin: 02/02/17 17:33 Dose: Not Given Iodine (Iodine 2% Mild Tincture) Confirm Administered Dose 30 ml .ROUTE .STK- MED ONE Stop: 02/02/17 08:28 Last Admin: 02/02/17 11:15 Dose: 18 ml Ketorolac Tromethamine (Toradol) 15 mg IVPUSH Q6H PRN PRN Reason: Pain Last Admin: 02/03/17 02:09 Dose: 15 mg Lidocaine/Sodium Bicarbonate (Buffered Lidocaine 1% In Ns 8.4%) 0.25 ml .XX ONETIME PRN PRN Reason: Prior to IV Start Stop: 02/02/17 13:00 Last Admin: 02/02/17 08:55 Dose: 0.25 ml Magnesium Hydroxide (Milk Of Magnesia) 30 ml PO BID PRN PRN Reason: Constipation Meperidine HCl (Demerol) 12.5 mg IVPUSH ONETIME PRN PRN Reason: Shivering Stop: 02/02/17 16:00 Midazolam HCl (Versed 1 Mg/Ml) Confirm Administered Dose 2 mg .ROUTE .STK-MED ONE Stop: 02/02/17 09:01 Miscellaneous Information (Remove Patch) 0 ea TRDERM Q72H [facility] Morphine Sulfate (Morphine) 2 mg IVPUSH Q2H PRN PRN Reason: Breakthrough Pain Morphine Sulfate (Duramorph Pf) Confirm Administered Dose 1 mg .ROUTE .STK-MED ONE Stop: 02/02/17 08:33 Naloxone HCl (Narcan) 0.1 mg IVPUSH Q5M PRN PRN Reason: Oversedation Ondansetron HCl (Zofran) 4 mg IVPUSH Q6H PRN PRN Reason: Nausea/Vomiting Last Admin: 02/02/17 14:41 Dose: 4 mg Ondansetron HCl (Zofran) 4 mg IVPUSH ONETIME PRN PRN Reason: Nausea/Vomiting Stop: 02/02/17 23:00 Oxycodone/Acetaminophen (Percocet 325-5 Mg) 1 - 2 tab PO Q4H PRN PRN Reason: Pain Last Admin: 02/03/17 15:08 Dose: 2 tab Norethindrone [Ortho (Micronor] 0.35 Mg) 0 each PO DAILY [facility] Last Admin: 02/03/17 14:22 Dose: Not Given Propofol (Diprivan 20 Ml) Confirm Administered Dose 600 mg .ROUTE .STK-MED ONE Stop: 02/02/17 09:01 Propofol (Diprivan 20 Ml) Confirm Administered Dose 200 mg .ROUTE .STK-MED ONE Stop: 02/02/17 11:33 Rivaroxaban (Xarelto) 10 mg PO DAILY [facility] Last Admin: 02/03/17 13:43 Dose: 10 mg Scopolamine (Transderm-Scop) 1.5 mg TRDERM Q72H PRN PRN Reason: Nausea/Vomiting Last Admin: 02/02/17 18:39 Dose: 1.5 mg Senna (Senna) 8.6 mg PO BID PRN PRN Reason: Constipation Sodium Chloride (Saline Flush) 10 ml FLUSH ASDIRECTED PRN PRN Reason: Keep Vein Open Stop: 02/02/17 13:00 Tranexamic Acid (Cyklokapron) Confirm Administered Dose 1,000 mg .ROUTE .STK- MED ONE Stop: 02/02/17 08:28 Last Admin: 02/02/17 11:22 Dose: 1,000 mg Vancomycin HCl (Vancomycin) Confirm Administered Dose 1 gm .ROUTE .STK-MED ONE Stop: 02/02/17 08:28 Last Admin: 02/02/17 11:22 Dose: 1 gm *Q Meaningful Use (DIS) - VTE *Q VTE Criteria *Q: - Stroke *Q Stroke Criteria *Q: - AMI *Q AMI Criteria *Q:
--- NOTE | 2017-02-05 12:03 | PCM.OPNOTE ---
- General Post-Op/Procedure Note Date of Surgery/Procedure: 02/02/17 Operative Procedure(s): right total hip arthroplasty Pre Op Diagnosis: right hip osteoarthrosis Post-Op Diagnosis: Same Anesthesia Technique: Local, MAC, Spinal Primary Surgeon: Eric Campoverde Anesthesia Provider: Isai Cox Voice Coach: Batsheva Garsia Voice Coach: Yanique Farmer EBNba in mLs: 250 Complications: None Condition: Good
--- NOTE | 2017-02-05 13:37 | OR ---
DATE OF OPERATION: 02/02/2017 SURGEON: Eric Campoverde MD OPERATION PERFORMED: Right total hip arthroplasty. PREOPERATIVE DIAGNOSIS: Right hip osteoarthrosis. POSTOPERATIVE DIAGNOSIS: Right hip osteoarthrosis. ANESTHESIA: Technique: Local MAC with spinal. ANESTHESIA PROVIDER: Isai Cox. ASSISTANTS: Batsheva Garsia PA-C and Yanique Farmer LPN ESTIMATED BLOOD LOSS: 250 mL. COMPLICATIONS: None. CONDITION: Stable. IMPLANTS: 1. Oneida size 50 mm solid Tritanium acetabular cup. 2. Oneida size MDM components of 38 mm liner with 38 mm polyethylene and 22.2 + 0 metal head. Size 2 Accolade II stem. DESCRIPTION OF PROCEDURE: The patient was identified in the preoperative holding area. Proper site was marked and identified by the surgeon. The patient was taken back to the operating theater, where after adequate anesthesia, the patient was placed in the left lateral decubitus position. Axillary roll was then placed. All pegs were then placed and well padded. The patient's gluteal fold was parallel to the floor. At this time, the right hip was then sterilely prepped and draped in the usual sterile fashion. OR time-out was performed. The patient received 2 g IV Ancef. A standard posterior incision was made, centered over the greater trochanter. This was taken down to the IT band and gluteal fascia, which was incised along the incisional length. At this time, the short external rotators were identified and takedown of the short external rotators and capsule was done starting at the piriformis all the way down to the lesser trochanter. The hip was then dislocated and neck cut guide was then placed. The neck cut was then completed and it was found to be adequate resection. At this time, attention was turned to the acetabulum. Anterior and posterior acetabular retractors were placed. The pulvinar was removed along with any remaining labrum. At this time, starting with a 42 reamer I was able to ream up to a size 50 reamer which was found to have a good purchase. A size 50 Tritanium acetabular cup was then impacted into place, and roughly 50 degrees of abduction and 20 to 30 degrees of anteversion. It was found to have good stability. At this time, the MDM liner was impacted into place. Attention was turned to the femur. A box chisel was used out laterally. Starter awl was placed, and then starting with the 0 broach, I was able to broach this up to a size 2 which was found to be rotationally and vertically stable. At this time, trial components were placed with a 132 degree neck secondary to the patient's high valgus angle to begin with and a 22.2 + 0 head. At this time, the patient had adequate spiritism of leg lengths and was stable throughout her range of motion. Bone hook was used to dislocate the hip. At this time, a size 2 Accolade stem was impacted into place. The MDM components were constructed on the back table and then were impacted onto place onto the stem, and the hip was reduced. Two #5 Ethibond sutures were used for closure of the short external rotators and capsule. At this time, 1 L of dilute Betadine solution was irrigated through the hip along with 3 L of pulse lavage irrigation with Ancef. Next, #2 barbed suture was used for closure of the IT band and gluteal fascia, 2-0 Vicryl was used subcutaneously, and Prineo was used for the skin. The patient tolerated the procedure well and was sent to PACU in stable condition. MMODAL /[id number]
== END 2017-02-03 16:06 | disposition home or self-care (01) | DRG 470 ==
LOC: JD.ICU 08:22 → JD.OB 10:59 → JD.MS 15:50
PROVIDERS: ADMIT Orthopaedic Surgery; ATTEND Orthopaedic Surgery
PROC: 0SR9019 Replacement of Right Hip Joint with Metal Synthetic Substitute, Cemented, Open Approach (ICD-10-PCS; principal; 2017-02-02)
DX: M16.31 Unilateral osteoarthritis resulting from hip dysplasia, right hip (principal); Q65.89 Other specified congenital deformities of hip; Z79.3 Long term (current) use of hormonal contraceptives
CPT/HCPCS: 01214; 36415; 73501-26-RT; 73501-RT; 80053; 81025; 85025; 86850; 86900; 86901; 87641; 94762; 97110-GP; 97116-GP; 97161-GP; 97166-GO; 97535-GO; A9270-GY; C1776; J0171; J0690; J0697; J1200; J1885; J2250; J2270; J2274; J2405; J2704; J3010; J3370; J3490; J7050; J7120